=== PATIENT | male | born 1955 | race Caucasian/White ===

== ENCOUNTER 2018-03-20 21:50 | Emergency (ER) | payer OTHER ==
[2018-03-21] MEDS: LIDOCAINE 1% (MDV) 10 ML INJ INJ (01:35)
[2018-03-21] MEDS: DIPHTH/TET/ACEL PERTUSS (ADULT) 0.5 ML VIAL IM* (01:35)
== END 2018-03-21 09:42 | disposition home or self-care (01) ==
LOC: E/R 03-21 09:42
DX: F10.120 Alcohol abuse with intoxication, uncomplicated (principal); S05.41XA Penetrating wound of orbit with or without foreign body, right eye, initial encounter; F17.210 Nicotine dependence, cigarettes, uncomplicated; W26.8XXA Contact with other sharp object(s), not elsewhere classified, initial encounter; Y92.410 Unspecified street and highway as the place of occurrence of the external cause; Z23 Encounter for immunization
CPT/HCPCS: 12013; 70450; 90471; 90715; 99284-25